=== PATIENT | male | born 1950 | race Caucasian/White ===

== ENCOUNTER → 2020-01-30 | Outpatient (CLI) | payer OTHER, MEDICARE ==
[~2020-01-30] MED LIST: FARXIGA10 MG PO; FLEXERIL PO; LISINOPRIL PO; LOPID600 MG PO; METFORMIN HCL500 M3 PO; NAPROSYN500 M1 PO; NORCO 10-325 T1 EACH PO
== END ==
LOC: M.PC 10:10
PROVIDERS: ATTEND Physical Medicine & Rehabilitation
DX: M51.16 Intervertebral disc disorders with radiculopathy, lumbar region (principal); Z92.241 Personal history of systemic steroid therapy; Z88.8 Allergy status to other drugs, medicaments and biological substances; Z79.899 Other long term (current) drug therapy